=== PATIENT | female | born 1930 | race Caucasian/White ===

== ENCOUNTER → 2020-05-23 | Outpatient (CLI) | payer MEDICARE, OTHER ==
[~2020-05-23] MED LIST: AMLODIPINE BESY10 MG PO; ARICEPT10 MG PO; ATORVASTATIN CA10 MG PO; COZAAR100 MG PO; GABAPENTIN800 MG PO; LEVOTHYROXINE50 MC1 PO; LUMIGAN 0.01%2.5 ML EYEBOTH; METFORMIN HCL500 MG PO; METOPROLOL TART25 MG PO; RALOXIFENE HCL60 MG PO; TROSPIUM CHLORI20 MG PO; VITAMIN B-121000 MCG PO; VITAMIN C1000 MG PO; VITAMIN D3125 MCG PO
== END ==
LOC: CT 09:30
DX: C57.8 Malignant neoplasm of overlapping sites of female genital organs (principal); N13.30 Unspecified hydronephrosis
CPT/HCPCS: 36415; 82565; Q9965

== ENCOUNTER → 2020-06-12 | Outpatient (CLI) | payer MEDICARE, OTHER ==
[2020-06-12 14:00] LABS: BUN/CREATININE RATIO 17 (0-10)
== END ==
LOC: LAB 11:43
PROVIDERS: Preventive Medicine Addiction Medicine
DX: E11.610 Type 2 diabetes mellitus with diabetic neuropathic arthropathy (principal); E55.9 Vitamin D deficiency, unspecified; I51.9 Heart disease, unspecified; E03.9 Hypothyroidism, unspecified
CPT/HCPCS: 36415; 80053; 80061; 83036; 84443

== ENCOUNTER → 2020-06-27 | Day surgery (SDC) | payer MEDICARE, OTHER | END | disposition home or self-care (01) | LOC: OR 11:48 | DX: N13.30 Unspecified hydronephrosis (principal); Q62.11 Congenital occlusion of ureteropelvic junction; I25.10 Atherosclerotic heart disease of native coronary artery without angina pectoris; I10 Essential (primary) hypertension; D64.9 Anemia, unspecified; M19.90 Unspecified osteoarthritis, unspecified site; E11.9 Type 2 diabetes mellitus without complications; J45.909 Unspecified asthma, uncomplicated; E03.9 Hypothyroidism, unspecified; K21.9 Gastro-esophageal reflux disease without esophagitis; G56.03 Carpal tunnel syndrome, bilateral upper limbs; Z88.2 Allergy status to sulfonamides; Z80.1 Family history of malignant neoplasm of trachea, bronchus and lung; Z83.3 Family history of diabetes mellitus; Z87.891 Personal history of nicotine dependence; Z82.49 Family history of ischemic heart disease and other diseases of the circulatory system; Z82.3 Family history of stroke | CPT/HCPCS: 82962; C1769; C1894; C2617; J1100; J1956; J2001; J2405; J2704; J3010; J7030; J7120; Q9962 ==

== ENCOUNTER → 2020-10-01 | Outpatient (CLI) | payer MEDICARE, OTHER ==
[2020-10-01 10:17] LABS: HEMOGLOBIN 12.2 gm/dl (12.3-15.3); RED BLOOD COUNT 3.84 M/UL (4.00-5.10)
[2020-10-01 10:44] LABS: BUN/CREATININE RATIO 18 (0-10)
== END ==
LOC: US 09:27
PROVIDERS: Preventive Medicine Addiction Medicine
DX: N13.30 Unspecified hydronephrosis (principal); R63.4 Abnormal weight loss; E11.610 Type 2 diabetes mellitus with diabetic neuropathic arthropathy
CPT/HCPCS: 36415; 80053; 83036; 84443; 85025